=== PATIENT | female | born 1980 | race Caucasian/White ===

== ENCOUNTER 2016-06-30 10:09 | Emergency (ER) | payer OTHER ==
[~2016-06-30] VITALS: Ht 172.7 cm; Wt 86.4 kg
[2016-06-30 10:15] VITALS: BP 155/92; PULSE 96; RESP 18; O2SAT 97
--- NOTE | 2016-06-30 11:00 | ED.REPORT ---
HPI-Chest Pain Under 40 Date of Service Jun 30, 2016 ED Provider: Ricardo Conroy MD Pt is a 36 y/o healthy female presenting to the ED c/o waxing and waning pinching chest pain under the right breast with radiation to the back onset 24 hours ago. Her pain is exacerbated by walking and eating. She c/o associated mild nausea. She denies pleuritic pain, SOB, vomiting, cough, fever, dysuria. Pt denies long periods of immobilization, unilateral leg swelling or calf pain. She has been on control for many years. Nursing Notes Stated Complaint: BACK/CHEST PAIN Chief Complaint: Female Abdominal Pain Nursing Notes Reviewed: Yes Allergies: Coded Allergies: acetaminophen (Verified Adverse Reaction, Unknown, hives, itchy, 06/30/16) oxycodone (Verified Adverse Reaction, Unknown, hives, itchy, 06/30/16) General Time Seen by MD: 10:59 Chief Complaint Chest pain Hx Obtained From: Patient Arrived By: Walk-in Sudden in Onset?: No Onset Occurred: 1 day ago Symptom Duration: Waxes and wanes Location: : Chest right Quality: Sharp Radiation: : Back Severity: Current: Mild Severity: Maximum: Mild Similar Sx Previous: No Risk Factors PERC Rule Exogenous estrogen use PERC Result: PERC rule not satisfied Past Medical History Past Medical History Kidney stones Endometriosis Stress headaches Past Surgical History None reported Smoking History Unknown if Ever Smoker Ambulatory Status Independent Review of Systems Constitutional: Denies: Chills, Fever Respiratory: Denies: Non-productive cough, Pleuritic pain, Shortness of breath Cardiovascular: Reports: Chest pain, Denies: Dyspnea on exertion, Edema GI: Reports: Nausea, Denies: Abdominal pain, Vomiting Musculoskeletal: Reports: Back pain, Denies: Extremity pain, Extremity swelling Complete sys rev & neg: except as marked. Female: Denies: Dysuria Physical Exam Initial Vital Signs Vital Signs (First) Date Time Temp Pulse Resp B/P Pulse Ox O2 Delivery O2 Flow Rate FiO2 06/30/16 10:15 36.4 96 18 155/92 97 Initial VS: Reviewed, Vital signs normal Head / Eyes: Atraumatic, Normocephalic, PERRL ENT: Mucous membranes moist, Conjunctiva normal, No scleral icterus Neck: Supple, Full range of motion Abdomen / GI: Soft, Non-tender, No guarding, No rebound, No distention Extremities: Vascular intact, Neuro intact, No swelling, No tenderness Skin: Warm, Dry, No cyanosis Psychiatric: Mood/affect normal, Behavior normal, Normal thought content General/Constitutional: Awake, Alert, No acute distress, Well appearing, Well developed, Well hydrated, Well nourished, Cooperative, Not toxic appearing Respiratory / Chest: Atraumatic, Breath sounds NL, Breath sounds = bilat, No respiratory distress, No rales, No rhonchi, No wheezing, No retractions, No stridor, No chest tenderness, No chest wall deformity, No crepitus Cardiovascular: Heart rate NL, Regular rhythm, Heart sounds NL, No gallop, No murmurs, No rubs, Cap refill not delayed, Peripheral circulation NL Back: Full range of motion, Painless range of motion, No CVA tenderness Skin: Atraumatic, Color NL, No rash, Warm, Dry, Intact, Turgor NL, No swelling Interpretation & Diagnostics Interpretation & Diagnostics: US abdomen: negative per US tech Lab Results Interpretation Result Diagram: 06/30/16 1100 06/30/16 1100 Test 06/30/16 10:30 06/30/16 11:00 06/30/16 11:27 Hold Urine Received (Received) White Blood Count 8.0th/mm3 (3.8-10.1) Red Blood Count 4.70mil/mm3 (3.90-5.20) Hemoglobin 12.9g/dL (12.0-15.6) Hematocrit 39.6% (35.0-46.0) Mean Corpuscular Volume 84.3fL (81-100) Mean Corpuscular Hemoglobin 27.4pg (27.0-35.0) Mean Corpuscular Hemoglobin Concent 32.6% (32.0-37.0) Red Cell Distribution Width 12.9% (12.3-15.4) Platelet Count 357bil/L (150-400) Neutrophils (%) (Auto) 61.8% (40-74) Lymphocytes (%) (Auto) 27.8% (14-46) Monocytes (%) (Auto) 5.1% (4-12) Eosinophils (%) (Auto) 4.3% (0-5) Basophils (%) (Auto) 0.9% (0-3) D-Dimer < 0.5mg/L (<0.50) Sodium Level 139mEq/L (134-144) Potassium Level 4.1mEq/L (3.5-5.2) Chloride Level 103mEq/L (97-108) Carbon Dioxide Level 23mmol/L (18-29) Blood Urea Nitrogen 12mg/dL (6-20) Creatinine 0.75mg/dL (0.57-1.00) Estimat Glomerular Filtration Rate 126mL/min (>59) Glucose Level 87mg/dL (60-99) Calcium Level 9.2mg/dL (8.5-10.1) Magnesium Level 2.2mg/dL (1.6-2.6) Total Bilirubin 0.2mg/dL (0.0-1.2) Aspartate Amino Transf (AST/SGOT) 15U/L (0-50) Alanine Aminotransferase (ALT/SGPT) 13U/L (0-32) Alkaline Phosphatase 58U/L (25-150) Troponin T < 0.010ug/L (0.0-0.011) Total Protein 7.7g/dL (6.4-8.4) Albumin 4.2g/dL (3.4-5.0) Lipase 39U/L (13-60) Hold Phillips Top Tube Received (Received) Urine Color Straw (YELLOW) Urine Appearance Hazy (CLEAR,HAZY) Urine pH 7.0 (5.0-8.0) Urine Specific [place] 1.010 (1.003-1.035) Urine Protein Negativemg/dL (NEG,TRACE) Urine Glucose (UA) Negativemg/dL (NEGATIVE) Urine Ketones Negativemg/dL (NEGATIVE) Urine Occult Blood Trace (NEGATIVE) Urine Nitrite Negative (NEGATIVE) Urine Bilirubin Negative (NEGATIVE) Urine Urobilinogen Normalmg/dL (NORMAL) Urine Leukocyte Esterase Negative (NEGATIVE) Urine RBC 0-2/hpf (0-2) Urine WBC 0-5/hpf (0-5) Urine Epithelial Cells Occasional/hpf (NONE-MOD) Urine Crystals None seen (NONE SEEN) Urine Bacteria Moderate/hpf (NONE-FEW) Urine Hyaline Casts None/lpf (NONE) Urine Granular Casts None seen (NONE SEEN) Urine Waxy Casts None seen (NONE SEEN) Urine Red Blood Cell Casts None seen (NONE SEEN) Urine White Blood Cell Casts None seen (NONE SEEN) Urine Mucus None seen (None Seen) Urine Trichomonas None seen (NONE SEEN) Urine Yeast None (NONE SEEN) Urinalysis Comment None Urine Culture Reflexed Indicated Lab Results Interpretation: Urine preg neg X-Ray Chest Interpretation Chest Xray Interpretation: IMPRESSION: No acute pulmonary process. Dictated by: Melinda Newton M.D. on 06/30/2016 at 11:35 Approved by: Melinda Newton M.D. on 06/30/2016 at 11:36 View: Portable, AP & lat Interpretation / Wet Read by: Interpret - Radiologist Re-Eval/Medical Decision Re-Evaluation/Progress : Time of Eval: 13:43 Re-Evaluation/Progress Note: Pt rechecked. Discussed negative lab and imaging results. She now states that it hurts worse when she eats. An ultrasound will be performed. Counseled Regarding: Diagnosis, Lab results, Need for follow-up, When/why to return to ED Discharge & Departure Primary Impression: Non-cardiac chest pain Disposition: Home Discharge Condition All VS Reviewed: Yes Condition: Stable Patient Instructions: Costochondritis (ED) Additional Instructions: Emergency Department evaluation included interview, examination, ECG, labs, chest x-ray and abdominal ultrasound. We have considered (among other things) heart attack, pneumonia, pulmonary embolism, gallbladder problem, and diabetes is supported by clinical data. It is felt safe for you to return home and use naproxen as needed for pain. Return to emergency department for fevers, increasing shortness of breath increasing chest pain frequently or frequent vomiting. Follow-up with primary care within 1 week. Call as soon as possible to make an appointment. Referrals: [facility], (PCP) Tamiko Attestation Portions of this note were transcribed by Evans Griffin. I, Dr. Conroy personally performed the history, physical exam and medical decision-making; I reviewed and confirmed the accuracy of the information in the transcribed note. Signed by Tamiko Mills, 06/30/16 - [id number] copies to: [facility] Rafiq AGUILAR Donald L MD Jun 30, 2016 11:00 EVANS GRIFFIN Jun 30, 2016 11:05
[2016-06-30 11:16] LABS: BASOPHILS % (AUTO) 0.9 % (0-3); EOSINOPHILS % (AUTO) 4.3 % (0-5); MONOCYTES % (AUTO) 5.1 % (4-12); Mean Corpuscular Hemoglobin 27.4 pg (27.0-35.0); Mean Corpuscular Volume 84.3 fL (81-100); NEUTROPHILS % (AUTO) 61.8 % (40-74); Platelet Count 357 bil/L (150-400)
[2016-06-30 11:36] LABS: Magnesium 2.2 mg/dL (1.6-2.6)
--- NOTE | 2016-06-30 11:37 | DRSVH ---
PROCEDURE: X-RAY CHEST, TWO VIEWS ([id number]) INDICATIONS: RIGHT SIDED CHEST PAIN TECHNIQUE: 2 views of the chest were acquired. COMPARISON: None. FINDINGS: Surgical changes and devices: None. Lungs and pleura: No pleural effusions or pneumothorax. Lungs are clear. Mediastinum: Mediastinal contours are normal. Heart size is normal. Bones and chest wall: No suspicious bony abnormalities. Soft tissues appear unremarkable. IMPRESSION: No acute pulmonary process. Dictated by: Melinda Newton M.D. on 06/30/2016 at 11:35 Approved by: Melinda Newton M.D. on 06/30/2016 at 11:36
[2016-06-30 11:53] LABS: APPEARANCE,URINE HAZY (CLEAR,HAZY); COLOR,URINE STRAW (YELLOW); OCCULT BLOOD,URINE TRACE (NEGATIVE); UROBILINOGEN,URINE NORMAL (NORMAL)
--- NOTE | 2016-06-30 15:12 | DRSVH ---
PROCEDURE: US ABDOMEN INDICATIONS: RUQ pain post eating TECHNIQUE: Real-time scanning was performed of the abdominal and retroperitoneal organs, with image documentatio n. COMPARISON: None. FINDINGS: Liver length: 14.41 cm Gallbladder Wall Thickness: 2.30 mm CHD: not well seen CBD: 3 mm Spleen length: 8.33 cm Right kidney length: 10.41 cm Left kidney length: 10.54 cm Aorta(Proximal): 1.93 cm Aorta(Mid): 1.58 cm Aorta(Distal): 1.61 cm RCIA: 1.07 cm LCIA: 9.70 mm Liver: Liver is normal in size and homogeneous in echotexture. Gallbladder: Gallbladder is within normal limits. Biliary ducts: Intrahepatic bile ducts are non-dilated. Extrahepatic bile duct caliber is normal. Normal is 6-7 mm or less in diameter, or 10 mm or less post-cholecystectomy. Pancreas: Visualized portions of the pancreas are sonographically normal. Spleen: Spleen is normal in size and homogeneous in echotexture. Kidneys: Kidneys are normal in size and echotexture. No hydronephrosis or nephrolithiasis. No candie d masses. Aorta: Visualized aorta is normal in caliber at less than 3 cm. Iliacs: Proximal common iliac arteries are normal in caliber at less than 2.5 cm. IVC: Intrahepatic inferior vena cava is patent. Miscellaneous: No free abdominal fluid. IMPRESSION: Normal exam. Dictated by: Bharath STRICKLAND Interpreted: Melinda Newton MD on 06/30/2016 at 15:12 Transcribed by: MARCELLUS on 06/30/2016 at 15:12 Approved by: Melinda Newton M.D. on 07/01/2016 at 9:25
== END 2016-06-30 14:43 | disposition home or self-care (01) ==
LOC: SED 10:09
DX: R07.89 Other chest pain (principal); Z88.5 Allergy status to narcotic agent; Z88.8 Allergy status to other drugs, medicaments and biological substances

== ENCOUNTER 2016-12-05 18:19 | Emergency (ER) | payer OTHER ==
[~2016-12-05] VITALS: Ht 170.2 cm; Wt 81.4 kg
[2016-12-05 18:26] VITALS: BP 142/91; PULSE 94; RESP 18; O2SAT 99
[2016-12-05 19:02] LABS: Mean Corpuscular Volume 84.5 fL (81-100)
[2016-12-05 19:03] LABS: BASOPHILS % (AUTO) 0.2 % (0-3); EOSINOPHILS % (AUTO) 1.3 % (0-5); MONOCYTES % (AUTO) 6.8 % (4-12); Mean Corpuscular Hemoglobin 27.7 pg (27.0-35.0); NEUTROPHILS % (AUTO) 80.6 % (40-74); Platelet Count 364 bil/L (150-400)
[2016-12-05 19:28] LABS: Magnesium 1.7 mg/dL (1.6-2.6)
[2016-12-05 20:06] VITALS: BP 132/80; PULSE 85; RESP 20; O2SAT 99
--- NOTE | 2016-12-05 20:18 | ED.REPORT ---
HPI-Abd Pain F Under 40 Date of Service Dec 05, 2016 ED Provider: Jhony Colvin MD Pt is a 36 year old female with a history of kidney stones and endometriosis who presents to the ED complaining of stabbing abdominal pain onset yesterday night. She c/o associated right lower back pain and nausea. She denies cough, SOB, fever, dysuria, hematuria, vomiting, and diarrhea. Pt rates her pain at a 9 /10 at its worst, but states that it is currently a 4/10. Per pt, her pain is exacerbated with drinking water and walking. Pt took codeine at 17:00 with minimal relief. Pt denies a history of appendectomy or cholecystectomy. Nursing Notes Stated Complaint: STOMACH PAIN,NAUSEA Chief Complaint: Female Abdominal Pain Nursing Notes Reviewed: Yes ([employer], [employer] not reconciled) Allergies: Coded Allergies: acetaminophen (Verified Adverse Reaction, Unknown, hives, itchy, 12/05/16) OK TO TAKE NORCO oxycodone (Verified Adverse Reaction, Unknown, hives, itchy, 12/05/16) OK TO TAKE NORCO Scheduled PRN Hydrocodone-Acetaminophen 5-325 mg (Hydrocodone-Acetaminophen 5-325 mg) 1 Each Tablet 1-2 TABLET PO Q4H PRN PRN For Pain Ondansetron ODT (Ondansetron ODT) 8 Mg Tab.rapdis 8 MG PO Q4H PRN PRN For Nausea General Time Seen by MD: 20:14 Chief Complaint Abdominal pain Hx Obtained From: Patient Arrived By: Walk-in Sudden in Onset?: No Onset Occurred: Yesterday Symptom Duration: Since onset Location: : Periumbilical Quality: Painful, Stabbing Radiation: : Back Severity: Current: Moderate Severity: Maximum: Moderate Recent Healthcare: No recent doctor visit, No recent hospitalization Similar Sx Previous: No Past Medical History Past Medical History Kidney stones Endometriosis Stress headaches Past Surgical History Denies: Appendectomy, Cholecystectomy Smoking History Unknown if Ever Smoker Social History Alcohol Use: "Social" Drug Use: Denies drug use Other Social History: Good social support Ambulatory Status Independent Review of Systems Respiratory: Denies: Non-productive cough, Shortness of breath GI: Reports: Abdominal pain, Nausea, Denies: Diarrhea, Vomiting Female: Denies: Dysuria, Hematuria Musculoskeletal: Reports: Back pain Complete sys rev & neg: except as marked. Physical Exam Initial Vital Signs Vital Signs (First) Date Time Temp Pulse Resp B/P Pulse Ox O2 Delivery O2 Flow Rate FiO2 12/05/16 18:26 37.2 94 18 142/91 99 Room Air Initial VS: Reviewed, Vital signs normal Head / Eyes: Atraumatic, Normocephalic Neck: Supple, Full range of motion Extremities: Vascular intact, Neuro intact Skin: Warm, Dry, No cyanosis Neurologic: Alert, Oriented, Nonfocal Psychiatric: Mood/affect normal, Behavior normal General/Constitutional: Awake, Alert Respiratory / Chest: Atraumatic, Breath sounds NL, Breath sounds = bilat Cardiovascular: Heart rate NL, Regular rhythm, Heart sounds NL Abdomen: Atraumatic, Soft, Non-tender, No guarding, No rebound Improved following her pain Back: Atraumatic, Full range of motion Interpretation & Diagnostics CT KUB: IMPRESSION: No hydronephrosis or nephrolithiasis found. No CT evidence of appendicitis. Incidental is made of several bilateral pelvic phleboliths, but no distal ureteral stone is suspected. Dictated by: Lauri David M.D. on 12/05/2016 at 21:45 Lab Results Interpretation Result Diagram: 12/05/16 1828 12/05/16 1847 Test 12/05/16 18:28 12/05/16 18:47 12/05/16 21:20 White Blood Count 18.3th/mm3 (3.8-10.1) Red Blood Count 4.59mil/mm3 (3.90-5.20) Hemoglobin 12.7g/dL (12.0-15.6) Hematocrit 38.8% (35.0-46.0) Mean Corpuscular Volume 84.5fL (81-100) Mean Corpuscular Hemoglobin 27.7pg (27.0-35.0) Mean Corpuscular Hemoglobin Concent 32.7% (32.0-37.0) Red Cell Distribution Width 12.8% (12.3-15.4) Platelet Count 364bil/L (150-400) Neutrophils (%) (Auto) 80.6% (40-74) Lymphocytes (%) (Auto) 10.9% (14-46) Monocytes (%) (Auto) 6.8% (4-12) Eosinophils (%) (Auto) 1.3% (0-5) Basophils (%) (Auto) 0.2% (0-3) Sodium Level 139mEq/L (134-144) Potassium Level 3.7mEq/L (3.5-5.2) Chloride Level 104mEq/L (97-108) Carbon Dioxide Level 20mmol/L (18-29) Blood Urea Nitrogen 12mg/dL (6-20) Creatinine 0.72mg/dL (0.57-1.00) Estimat Glomerular Filtration Rate 132mL/min (>59) Glucose Level 113mg/dL (60-99) Lactic Acid Level 1.1mmol/L (0.4-2.0) Calcium Level 8.9mg/dL (8.5-10.1) Magnesium Level 1.7mg/dL (1.6-2.6) Total Bilirubin 0.2mg/dL (0.0-1.2) Aspartate Amino Transf (AST/SGOT) 14U/L (0-50) Alanine Aminotransferase (ALT/SGPT) 14U/L (0-32) Alkaline Phosphatase 62U/L (25-150) Total Protein 7.6g/dL (6.4-8.4) Albumin 4.0g/dL (3.4-5.0) Lipase 28U/L (13-60) Hold Phillips Top Tube Received (Received) Urine Color Yellow (YELLOW) Urine Appearance Clear (CLEAR,HAZY) Urine pH 5.5 (5.0-8.0) Urine Specific [place] 1.020 (1.003-1.035) Urine Protein Negativemg/dL (NEG,TRACE) Urine Glucose (UA) Negativemg/dL (NEGATIVE) Urine Ketones Negativemg/dL (NEGATIVE) Urine Occult Blood Moderate (NEGATIVE) Urine Nitrite Negative (NEGATIVE) Urine Bilirubin Negative (NEGATIVE) Urine Urobilinogen Normalmg/dL (NORMAL) Urine Leukocyte Esterase Negative (NEGATIVE) Urine RBC 3-10/hpf (0-2) Urine WBC 0-5/hpf (0-5) Urine Epithelial Cells Few/hpf (NONE-MOD) Urine Crystals None seen (NONE SEEN) Urine Bacteria Few/hpf (NONE-FEW) Urine Hyaline Casts None/lpf (NONE) Urine Granular Casts None seen (NONE SEEN) Urine Waxy Casts None seen (NONE SEEN) Urine Red Blood Cell Casts None seen (NONE SEEN) Urine White Blood Cell Casts None seen (NONE SEEN) Urine Mucus None seen (None Seen) Urine Trichomonas None seen (NONE SEEN) Urine Yeast None (NONE SEEN) Urinalysis Comment None Urine Culture Reflexed Not indicated Lab Results Interpretation: CBC marked leukocytosis CMP normal Lipase normal Lactic acid normal UA microscopic hematuria Re-Eval/Medical Decision Med Decision/Clinical Course This is a 36-year-old female with a history of kidney stones presents with acute severe abdominal pain. She reports it is a little atypical for her usual kidney stones, and is more severe. She is afebrile, but does appear uncomfortable. Her abdomen however soft and nontender. An IV was placed and received titrated medicine ultimate improvement, although did take several doses of medication to achieve adequate analgesia. Blood work was no for marked leukocytosis, given the atypical features, CT imaging was obtained-but was negative for appreciable stone or ulcer pathology. However urinalysis still reveals some microscopic hematuria, raising the possibility recently passed stone with residual ureteral spasm. I am not finding evidence of luis infection, and the leukocytosis may be reactive. Ultimately a dangerous rhythm definitive etiology of the abdominal pain was not established. The patient is improved with supportive therapy, and his couple discharged home. Routine and return precautions reviewed. Source of Hx: Old records Re-Evaluation/Progress #1: Time of Eval: 23:41 Re-Evaluation/Progress Note: Pt rechecked. Updated pt. All questions addressed. Re-Evaluation/Progress #2: Time of Eval: 00:17 Re-Evaluation/Progress Note: Pt rechecked. Informed pt of plan for discharge. Pt understands and agrees with plan for discharge. F/U instructions and RTER warnings given. All questions addressed. Differential Diagnosis: Positive: Acute abdominal pain, Negative: Acute coronary syndrome, Cholangitis, Cholecystitis, Cholelithiasis , Contusion abdominal wall, Ectopic preg ruptured, Ectopic , Esophageal rupture, Gun shot wound abdomen, Intrauterine , Myocardial infarction, Postop complication Counseled Regarding: Diagnosis, Lab results, Need for follow-up, When/why to return to ED Discharge & Departure Primary Impression: Abdominal pain Abdominal location: unspecified location Qualified Code: R10.9 - Unspecified abdominal pain Disposition: Home Discharge Condition All VS Reviewed: Yes Condition: Stable Additional Instructions: 1. A definitive cause of the pain was not identified. 2. You do have microscopic amounts of blood in your urine and you may have recently passed a kidney stone and are having residual pain from ureteral spasm. 3. Take ibuprofen 400-800mg three times a day for pain. 4. Take hydrocodone/APAP 5/325 1-2 tabs up to every 4 hours as needed for pain. NOTE: This medication contains a narcotic and causes drowsiness. NO driving for at least 4 hours after taking. 5. Take ondansetron 4-8mg (let dissolve underneath tongue) up to every 4 hours as needed for nausea. 6. Return to the ED if new, worsening, or uncontrolled symptoms occur. 7. Symptoms are expected to improve over the next 1-2 days. Referrals: Hanny Arenas (PCP) Scribe Attestation Portions of this note were transcribed by Shawnee Hirsch. I, Dr. Colvin personally performed the history, physical exam and medical decision-making; I reviewed and confirmed the accuracy of the information in the transcribed note. Signed by: Tamiko Kerns, 12/05/16. copies to: Hanny Arenas Matthew F MD Dec 05, 2016 20:18 Shawnee Barlow Dec 05, 2016 20:38
[2016-12-05] MEDS ORDERED: 0.9% Sodium Chloride 1,000 ML IV ONE (20:20)
[2016-12-05] MEDS ORDERED: Ondansetron 2 mg/mL 2 mL Inj IVPUSH ONE (20:20)
[2016-12-05] MEDS: HYDROmorphone 0.5 mg/0.5 mL iSecure Syringe IVPUSH PRN ×2 (20:25→21:19)
--- NOTE | 2016-12-05 21:48 | DRSVH ---
PROCEDURE: CT KUB ([id number]) INDICATIONS: abd pain TECHNIQUE: Noncontrast 5 mm thick sections acquired from the diaphragms to the symphysis. 5 mm thick coronal an d sagittal reformats were then performed. For radiation dose reduction, the following was used: aut omated exposure control, adjustment of mA and/or kV according to patient size. COMPARISON: None. FINDINGS: Image quality: Excellent. Lung bases: Lung bases are clear. Heart size is normal. Urinary system: Both kidneys are normal in size. No kidney stones. No hydronephrosis or perinephri c fat stranding. Both ureters appear non-dilated throughout their expected courses. Bladder wall th ickness is normal; no calcified bladder stones. Other solid organs: Liver and spleen are normal in size. Gallbladder is appears normal. Pancreas i s normal in contours. No adrenal nodules. Peritoneum and bowel: Unenhanced bowel loops demonstrate normal wall thickness and caliber. No free fluid or air. Nodes and vessels: No retroperitoneal or mesenteric adenopathy by size criteria. Aorta and inferior vena cava are normal in caliber. Abdominal wall: No ventral hernias. Pelvis: No free pelvic fluid. No inguinal hernias or adenopathy. Bones: No suspicious bony lesions. No vertebral body compression fractures. IMPRESSION: No hydronephrosis or nephrolithiasis found. No CT evidence of appendicitis. Incidental is made of several bilateral pelvic phleboliths, but no distal ureteral stone is suspected. Dictated by: Lauri David M.D. on 12/05/2016 at 21:45 Approved by: Lauri David M.D. on 12/05/2016 at 21:46
[2016-12-05 21:58] LABS: APPEARANCE,URINE CLEAR (CLEAR,HAZY); COLOR,URINE YELLOW (YELLOW); OCCULT BLOOD,URINE MODERATE (NEGATIVE); PH,URINE 5.5 (5.0-8.0)
[2016-12-05 21:59] LABS: UROBILINOGEN,URINE NORMAL (NORMAL)
[2016-12-05] MEDS ORDERED: Promethazine Inj 12.5 MG in Dextrose 5%-Pha MIX 50 ML IV ONE (22:40)
[2016-12-05] MEDS ORDERED: HYDROmorphone 0.5 mg/0.5 mL iSecure Syringe IVPUSH ONE (22:40)
[2016-12-05] MEDS ORDERED: _HYDROcodone/APAP 5-325 mg Tablet PO PRN (22:50)
[2016-12-05] MEDS ORDERED: _Ondansetron ODT 4 mg Tablet PO PRN (22:50)
[2016-12-05 22:54] VITALS: BP 138/95; PULSE 96; RESP 12; O2SAT 98
[2016-12-05] MEDS ORDERED: HYDROmorphone 1 mg/mL Inj IVPUSH ONE (23:20)
[2016-12-05] MEDS ORDERED: ONDA8TAB10 PO (23:39)
[2016-12-05] MEDS ORDERED: HYDR-4003 PO (23:39)
[2016-12-06 00:25] VITALS: BP 116/70; PULSE 108; RESP 18; O2SAT 98
== END 2016-12-06 00:26 | disposition home or self-care (01) ==
LOC: SED 18:19
DX: R10.33 Periumbilical pain (principal); M54.5 Low back pain; R11.0 Nausea; Z87.42 Personal history of other diseases of the female genital tract; Z87.442 Personal history of urinary calculi; Z88.5 Allergy status to narcotic agent; Z88.6 Allergy status to analgesic agent
CPT/HCPCS: 36415; 74176; 80053; 81000; 81025; 83605; 83690; 83735; 85025; 96361; 96374; 96375; 96376; 99285; J1170; J2405; J2550; J7030